=== PATIENT | male | born 1975 | race Caucasian/White ===

== ENCOUNTER → 2020-08-23 17:10 | Outpatient (BNVA) | payer BC, SELFPAY | PROVIDERS: Visit Provider Nurse Practitioner | DX: J02.9 Acute pharyngitis, unspecified (principal); J35.3 Hypertrophy of tonsils with hypertrophy of adenoids | CPT/HCPCS: 86308; 87071; 87880 ==

== ENCOUNTER → 2021-12-18 16:33 | Outpatient (BNVA) | payer BC, SELFPAY | PROVIDERS: Visit Provider Nurse Practitioner Family | DX: Z20.822 Contact with and (suspected) exposure to COVID-19 (principal) | CPT/HCPCS: 87635 ==

== ENCOUNTER → 2022-02-25 07:15 | Outpatient (BNVA) | payer OTHER, SELFPAY | PROVIDERS: PCP Family Medicine; Visit Provider Family Medicine | DX: D50.9 Iron deficiency anemia, unspecified (principal); R68.82 Decreased libido; J30.2 Other seasonal allergic rhinitis; Z12.5 Encounter for screening for malignant neoplasm of prostate | CPT/HCPCS: 80053; 80061; 82728; 83550; 84153; 84403; 85025 ==

== ENCOUNTER 2022-05-24 11:44 | Outpatient (CLI) | payer OTHER, SELFPAY ==
--- NOTE | 2022-05-24 12:00 | CT_ITS ---
WS: [id number] CT PARANASAL SINUSES HISTORY: Sinus infections TECHNIQUE: Contiguous 2.5 mm axial images obtained through the sinuses. Images are reconstructed in s agittal and coronal planes. All CT scans at [facility] use at least one of these dose optimiz ation techniques: automated exposure control; mA and/or kV adjustment per patient size (includes targ eted exams where dose is matched to clinical indication); or iterative reconstruction. DLP: 358.34 mGy.cm COMPARISON: None available. Frontal sinuses: Mild diffuse mucoperiosteal thickening extending into the frontal ethmoid recesses. Sphenoid sinus: Mild mucoperiosteal thickening. No air-fluid level. Ethmoid sinuses: Mild bilateral ethmoid air cell disease, greatest in the posterior air cells. There is also increased soft tissue extends to the frontal ethmoid recesses. Maxillary sinus: Very mild mucoperiosteal thickening, greatest on the RIGHT. Small mucous retention c yst RIGHT maxillary sinus. No air-fluid levels. Ostiomeatal unit: Mild soft tissue obstruction of the LEFT ostiomeatal unit. There is increased soft tissue at the RIGHT ostiomeatal unit but no obstruction at this time. Septum is near midline. Cribriform plate is in normal position. Orbits and globes are normal. CT/CT sinus wo con* [id number] IMPRESSION: 1. Mild diffuse mucoperiosteal thickening throughout the sinus cavities with a small RIGHT maxillary sinus mucous retention cyst. 2. No air-fluid levels. 3. Mild soft tissue obstruction of the LEFT ostiomeatal unit.
== END 2022-05-24 11:45 | disposition home or self-care (01) ==
PROVIDERS: PCP Family Medicine; Visit Provider Otolaryngology
DX: J32.9 Chronic sinusitis, unspecified (principal)
CPT/HCPCS: 70486

== ENCOUNTER → 2022-08-23 08:51 | Outpatient (BNVA) | payer OTHER, SELFPAY | PROVIDERS: PCP Family Medicine; Visit Provider Family Medicine | DX: R79.89 Other specified abnormal findings of blood chemistry (principal); G25.81 Restless legs syndrome; F17.219 Nicotine dependence, cigarettes, with unspecified nicotine-induced disorders | CPT/HCPCS: 84403; 85025 ==

== ENCOUNTER → 2023-01-23 09:25 | Outpatient (BNVA) | payer OTHER, SELFPAY | PROVIDERS: PCP Family Medicine; Visit Provider Family Medicine | DX: Z13.6 Encounter for screening for cardiovascular disorders (principal); R79.89 Other specified abnormal findings of blood chemistry; G25.81 Restless legs syndrome | CPT/HCPCS: 80053; 80061; 84403; 85025 ==

== ENCOUNTER → 2023-07-24 08:51 | Outpatient (BNVA) | payer OTHER, SELFPAY | PROVIDERS: PCP Family Medicine; Visit Provider Family Medicine | DX: R79.89 Other specified abnormal findings of blood chemistry (principal) | CPT/HCPCS: 84403; 85025 ==

== ENCOUNTER → 2023-07-31 08:26 | Outpatient (BNVA) | payer OTHER, SELFPAY | PROVIDERS: PCP Family Medicine; Visit Provider Family Medicine | DX: R79.89 Other specified abnormal findings of blood chemistry | CPT/HCPCS: 84403 ==

== ENCOUNTER 2023-09-22 17:00 | Outpatient (CLI) | payer OTHER, SELFPAY | END 2023-09-22 17:01 | disposition home or self-care (01) | LOC: SLEEP 09-23 10:09 | PROVIDERS: PCP Family Medicine; Visit Provider Family Medicine | DX: G47.33 Obstructive sleep apnea (adult) (pediatric) (principal) | CPT/HCPCS: 84403; G0399 ==

== ENCOUNTER → 2024-01-16 08:24 | Outpatient (BNVA) | payer BC, SELFPAY | PROVIDERS: PCP Family Medicine; Visit Provider Family Medicine | DX: R79.89 Other specified abnormal findings of blood chemistry (principal) | CPT/HCPCS: 84403; 85025 ==

== ENCOUNTER 2024-10-29 07:08 | Outpatient (CLI) | payer OTHER, SELFPAY ==
--- NOTE | 2024-10-29 07:12 | MR_ITS ---
WS: [id number] MRI LEFT ELBOW WITHOUT CONTRAST. COMPARISON: None Multiplanar, multisequence imaging is performed without contrast. Subtle marrow edema in the proximal radius. There is a short segment low signal associated with the m arrow edema which may indicate healing fracture. There is no displacement. There is also small amount of soft tissue edema at this site particularly between the radius and ulna. This may be from trabecu lar injury or subacute fracture. Brachialis and biceps tendon are appropriate. No tears or retraction. No significant joint effusion. The radial and ulnar collateral ligaments, common extensor tendon and the common flexor tendons appea r appropriate. There is no edema or tear is identified. No joint effusion or loose body. No osteochon dral lesions. MR/MR elbow LT wo con* [id number] IMPRESSION: 1. Subtle marrow edema in the proximal radial diaphysis. Small amount of assoc iated soft tissue edema. No displaced fracture. Suspect there is probably a hea ling incomplete fracture present. 2. No tendon or ligament tears identified.
== END 2024-10-29 07:09 | disposition home or self-care (01) ==
LOC: RAD 07:09
PROVIDERS: Visit Provider Preventive Medicine Preventive Medicine/Occupational Environmental Medicine
DX: S46.212A Strain of muscle, fascia and tendon of other parts of biceps, left arm, initial encounter (principal); X58.XXXA Exposure to other specified factors, initial encounter
CPT/HCPCS: 73221

== ENCOUNTER 2024-12-20 13:45 | Emergency (ER) | payer BC, SELFPAY ==
[2024-12-20 13:50] VITALS: BP 127/75; PULSE 91; RESP 20; TEMP 38.6; O2SAT 97; BMI 32.5
--- NOTE | 2024-12-20 13:57 | ECG_ITS ---
[facility] Test Date: 2024-12-20 Pat Name: Wilfrid Sales Department: Room: Gender: Male Clerk: : 1975 Requested By: Juan Naik Order Number: [id number] Reading MD: IESHA CALVERT Measurements Intervals [place] Rate: 91 P: 75 WA: 152 QRS: 61 QRSD: 75 T: 48 QT: 325 QTc: 401 Interpretive Statements SINUS RHYTHM No previous ECG available for comparison Electronically Signed On 12-20-2024 23:11:40 RN FACULTY by IESHA CALVERT [email or web address]
--- NOTE | 2024-12-20 14:02 | XRR_ITS ---
PROCEDURE INFORMATION: Exam: XR Chest Exam date and time: 12/20/2024 2:06 PM Age: 49 years old Clinical indication: Fever TECHNIQUE: Imaging protocol: Radiologic exam of the chest. Views: 1 view. COMPARISON: No relevant prior studies available. FINDINGS: Lungs: Unremarkable. No consolidation. Pleural spaces: Unremarkable. No pleural effusion. No pneumothorax. Heart/Mediastinum: Unremarkable. No cardiomegaly. Bones/joints: Unremarkable. XR/XR chest 1V portable [id number] IMPRESSION: No acute findings.
--- NOTE | 2024-12-20 14:23 | ED_ITS ---
HPI - Fever 2 General: Chief Complaint: Fever Stated Complaint: sent from clinic, AMS, flu like symp Time Seen by Provider: 12/20/24 14:11 History of Present Illness: 49-year-old male presents to the emergen cy room with flulike symptoms. Complaining of weakness generalized flulike symptoms coughing congested began yesterday. He was seen in primary care doctor they did antigen testing which was negative. Is complaining of myalgias and headache no diarrhea. Associated symptoms: Deny abdominal pain, chills, chest pain or dysuria Related Data Home Medications Medication Instructions Recorded Confirmed ropinirole 1 mg tablet 1 mg PO DAILY PRN rls 12/20/24 12/20/24 Previous Rx's Medication Instructions Recorded syringe with needle, safety 3 mL #100 ea 09/18/23 21 gauge x 1 (Monoject Safety Syringes) Auto titrating CPAP set to 6-16 #1 ea 09/26/23 with mask and supplies albuterol sulfate 90 mcg/actuation 2 inh inhalation Q4H PRN shortness 12/20/24 aerosol inhaler of breath or wheezing #18 grams Allergies Allergy/AdvReac Type Severity Reaction Status Date / Time No Known Allergies Allergy Verified 12/20/24 13:09 Review of Systems 2 Const: Denies: fever(s) or chills Card: Denies: chest pain Resp: Denies: dyspnea GI: Denies: abdominal pain : Denies: dysuria, urinary frequency or urinary urgency Musc: Denies: neck pain or back pain Skin/Breast: Denies: rash PFSH ED 2 PFSH: Medical History Syncope Chronic sinusitis with recurrent bronchitis Acute bronchitis No pertinent past medical history Surgical History No pertinent past surgical history Social History Smoking and tobacco/nicotine status: current every day tobacco/nicotine user cigarettes Packs smoked per day: 1 Alcohol intake: current Alcohol intake frequency: few times a week Alcohol type: beer Substance/Drug Use: never Physical Exam 2 Const: GENERAL APPEARANCE: cooperative ORIENTATION/CONSCIOUSNESS: Yes awake, Yes oriented to person, Yes oriented to place and Yes oriented to time HENMT: COMMON NORMALS: normocephalic, atraumatic and hearing grossly normal bilaterally HEAD & SCALP: normocephalic and atraumatic Resp: EFFORT & INSPECTION: Yes tachypneic AUSCULTATION: rhonchi Cardio: COMMON NORMALS: regular rate, regular rhythm and No murmurs present (Cardio) RATE: regular rate RHYTHM: regular rhythm GI: COMMON NORMALS: Soft to palpation and No hepatosplenomegaly present A USCULTATION: Yes normoactive bowel sounds PALPATION: Yes Soft to palpation, No Tenderness to palpation present (GI), No Guarding due to palpation present (GI) and Yes No hepatosplenomegaly present Extremity: COMMON NORMALS: normal to inspection, capillary refill normal, no clubbing, cyanosis or edema, no calf tenderness and no pedal edema Neuro: SENSORIUM/ORIENTATION: Yes oriented to person, Yes oriented to place and Yes oriented to time Skin: COMMON NORMALS: no rashes or lesions noted GENERAL SKIN EXAM: no rashes or lesions noted Course 2 Vital Signs: Vital signs: Vital Signs Temperature 101.4 F H 12/20/24 15:32 Pulse Rate 95 12/20/24 18:45 Respiratory Rate 20 H 12/20/24 13:50 Blood Pressure 119/57 12/20/24 18:45 Pulse Oximetry 93 12/20/24 18:45 Oxygen Delivery Me thod Room Air 12/20/24 18:00 MDM - Fever Medical Decision Making Patient has typical prodrome of virus. His white count is normal. He is complaining of chest and abdominal pain after initial workup CTA chest was added because he was slightly tachypneic and complaining of shortness of breath. He is also complaining of abdominal pain so include his abdomen CT. CTA chest with follow-through and abdomen pelvis was negative for any acute pathology his urine is normal. Will discharge patient home supportive cares and follow-up as needed. Medical Records I reviewed the patient's medical records. Lab Data I reviewed the patient's lab results. 12/20/24 14:33 12/20/24 14:33 Radiology Impressions Chest X-Ray 12/20/24 14:02 IMPRESSION: No acute findings. Chest/Abdomen/Pelvis CT 12/20/24 15:35 IMPRESSION: 1. No evidence for pulmonary embolism. 2. No acute cardiopulmonary process. 3. Nonspecific mediastinal and right hilar lymphadenopathy, which could be reactive in nature. Followup imaging recommended to insure stability/resolution however. 4. Incidental/nonacute findings are listed in the report. IMPRESSION: 1. Diffuse, mild bladder wall thickening. In the correct clinical setting, this may suggest cystitis. Recommend correlation with laboratory findings. Alternatively, this may be secondary to chronic outlet obstruction. 2. Incidental/nonacute findings are listed in the report. Laboratory Results WBC 9.41 10^3/uL (3.29-11.43) 12/20/24 14:33 RBC 4.85 10^6/uL (3.85-5.65) 12/20/24 14:33 Hgb 15.00 g/dL (11.27-16.99) 12/20/24 14:33 Hct 45.3 % (37-53) 12/20/24 14:33 MCV 93.4 fl (82-101) 12/20/24 14:33 MCH 30.9 pg (27-33) 12/20/24 14:33 MCHC 33.1 g/dL (30-55) 12/20/24 14:33 RDW 13.7 % (12.1-15.1) 12/20/24 14:33 Plt Count 199 10^3/cmm (157-399) 12/20/24 14:33 MPV 10.4 fL (7.4-10.4) 12/20/24 14:33 Neut % (Auto) 83.7 % 12/20/24 14:33 Lymph % (Auto) 7.9 % 12/20/24 14:33 [place] % (Auto) 7.4 % 12/20/24 14:33 Eos % (Auto) 0.3 % 12/20/24 14:33 Baso % (Auto) 0.3 % 12/20/24 14:33 Neut # (Auto) 7.87 10^3/uL (1.8-7.7) H 12/20/24 14:33 Lymph # (Auto) 0.7 10^3/uL (0.8-4.8) L 12/20/24 14:33 [place] # (Auto) 0.7 10^3/uL (0.2-0.9) 12/20/24 14:33 Eos # (Auto) 0.0 10^3/uL (0.0-0.8) 12/20/24 14:33 Baso # (Auto) 0.0 10^3/uL (0.0-0.1) 12/20/24 14:33 Nucleated RBC % (auto) 0 % 12/20/24 14:33 Nucleated RBCs # 0.0 /100WBC 12/20/24 14:33 Sodium 135 mmol/L (136-145) L 12/20/24 14:33 Potassium 4.0 mmol/L (3.5-5.1) 12/20/24 14:33 Chloride 97 mmol/L (98-107) L 12/20/24 14:33 Carbon Dioxide 27 mmol/L (22-29) 12/20/24 14:33 Anion Gap 15.0 (5-19) 12/20/24 14:33 BUN 14 mg/dL (6-20) 12/20/24 14:33 Creatinine 1.1 mg/dL (0.7-1.2) 12/20/24 14:33 GFR Calculation 70.9 mL/min (90-130) L 12/20/24 14:33 Glucose 101 mg/dL (65-115) 12/20/24 14:33 Calculated Osmolality 281 mOsm/kg (285-295) L 12/20/24 14:33 Lactic Acid 1.0 mmol/L (0.5-2.2) 12/20/24 14:33 Calcium 8.7 mg/dL (8.5-10.5) 12/20/24 14:33 Total Bilirubin 0.5 mg/dL (0.15-1.2) 12/20/24 14:33 AST 15 U/L (0-40) 12/20/24 14:33 ALT 16 U/L (0-41) 12/20/24 14:33 Alkaline Phosphatase 65 U/L (40-130) 12/20/24 14:33 Total Protein 6.6 g/dL (6.6-8.7) 12/20/24 14:33 Albumin 4.1 g/dL (3.5-5.2) 12/20/24 14:33 Globulin 2.5 g/dL (1.3-4.6) 12/20/24 14:33 Lipase 21 U/L (13-60) 12/20/24 14:33 Urine Color Yellow (Yellow) 12/20/24 18:10 Urine Appearance Clear (CLEAR) 12/20/24 18:10 Urine pH 6.0 (5-7) 12/20/24 18:10 Ur Specific [place] 1.090 (1.005-1.030) H 12/20/24 18:10 Urine Protein Trace (Negative) A 12/20/24 18:10 Urine Glucose (UA) Negative (Normal) 12/20/24 18:10 Urine Ketones Negative (Negative) 12/20/24 18:10 Urine Blood Negative (Negative) 12/20/24 18:10 Urine Nitrate Negative (Negative) 12/20/24 18:10 Urine Bilirubin Negative (Negative) 12/20/24 18:10 Urine Urobilinogen 1.0 mg/dL (Negative) 12/20/24 18:10 Ur Leukocyte Esterase Negative (Negative) 12/20/24 18:10 Urine RBC 0-2 /hpf (0-2) 12/20/24 18:10 Urine WBC 0-5 /hpf (0-5) 12/20/24 18:10 Ur Squamous Epith Cells 0-5 /hpf (0-5) 12/20/24 18:10 Amorphous Sediment Not Reportable 12/20/24 18:10 Urine Bacteria None seen /hpf (NONE) 12/20/24 18:10 Hyaline Casts 0-4 /lpf H 12/20/24 18:10 Coronavirus (PCR) Negative (Negative) 12/20/24 14:42 Influenza A (PCR) Negative (Negative) 12/20/24 14:42 Influenza Type B (PCR) Negative (Negative) 12/20/24 14:42 RSV (PCR) Negative (Negative) 12/20/24 14:42 All radiology interpretation(s) finalized by discharge Discharge Plan Discharge Patient Disposition: Home Clinical Impression: Viral URI with cough Condition: Stable Prescriptions: New albuterol sulfate 90 mcg/actuation HFA aerosol inhaler 2 inh INHALATION Q4H PRN (Reason: shortness of breath or wheezing) Qty: 18 0RF No Action (DME) Monoject Safety Syringes 3 mL 21 gauge x 1 syringe See Rx Instructions .Route Qty: 100 0RF Rx Instructions: Use with testosterone injection q 2 weeks (DME) Auto titrating CPAP set to 6-16 with mask and supplies See Rx Instructions .Route .MEDSUPPLY Qty: 1 0RF Rx Instructions: As directed ropinirole 1 mg tablet 1 mg PO DAILY PRN (Reason: rls) Discharge Orders: Discharge ED (Routine); Ordered 12/20/24 Ordered By: Juan Menchaca Discharge Diet: Usual diet Discharge Activity: Increase activity as tolerated Patient Instructions: Viral Syndrome (ED), Opioid Safety, Pain Management Activity Restrictions/Additional Instructions: Thank you for choosing [facility] for your healthcare needs today. It is very important that you follow up as instructed or that you return to the Emergency Department should you have concerns or if your condition changes or worsens in any way. You were seen in the emergency room for complaints of shortness of breath cough and congestion. Your white count was normal chest x-ray CTA of the chest as well as CT of the chest and abdomen was also normal. Your chemistry panel did not show significant abnormality. Recommend Tylenol and ibuprofen as needed for symptoms. You can use other [id number] cough cold medications as needed. Also use albuterol as needed for cough and congestion. If not improving follow- up with your primary care doctor. 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
[2024-12-20] MEDS: acetaminophen 500 mg Tablet 1000 MG PO (14:40)
[2024-12-20 14:49] LABS: Basophils % 0.3 %; Eosinophils % 0.3 %; Hematocrit 45.3 % (37-53); Lymphocytes # 0.7 10^3/uL (0.8-4.8); Lymphocytes % 7.9 %; Mean Corpuscular HGB Conc 33.1 g/dL (30-55); Mean Corpuscular Hemoglobin 30.9 pg (27-33); Mean Corpuscular Volume 93.4 fl (82-101); Mean Platelet Volume 10.4 fL (7.4-10.4); Monocytes # 0.7 10^3/uL (0.2-0.9); Monocytes % 7.4 %; Neutrophils # 7.87 10^3/uL (1.8-7.7); Neutrophils % 83.7 %; Nucleated Red Blood Cells % 0 %; Platelet Count 199 10^3/cmm (157-399); Red Blood Count 4.85 10^6/uL (3.85-5.65); Red Cell Distribution Width 13.7 % (12.1-15.1); White Blood Count 9.41 10^3/uL (3.29-11.43)
[2024-12-20 14:55] LABS: Alanine Aminotransferase 16 U/L (0-41); Albumin Level 4.1 g/dL (3.5-5.2); Alkaline Phosphatase 65 U/L (40-130); Aspartate Amino Transferase 15 U/L (0-40); Blood Urea Nitrogen 14 mg/dL (6-20); Calcium 8.7 mg/dL (8.5-10.5); Carbon Dioxide 27 mmol/L (22-29); Chloride 97 mmol/L (98-107); Creatinine Clr Calc Pharmacy 93.5636; Globulin 2.5 g/dL (1.3-4.6); Glomerular Filtration Rate 70.9 mL/min (90-130); Glucose 101 mg/dL (65-115); Lipase 21 U/L (13-60); Osmolality Calculated 281 mOsm/kg (285-295); Sodium 135 mmol/L (136-145); Total Bilirubin 0.5 mg/dL (0.15-1.2); Total Protein 6.6 g/dL (6.6-8.7)
[2024-12-20 15:26] LABS: Covid PCR NEGATIVE (Negative); Influenza A NEGATIVE (Negative); Influenza B NEGATIVE (Negative); Respiratory Syncytial Virus Ce NEGATIVE (Negative)
[2024-12-20] MEDS: sodium chloride 0.9% 1,000 ML 999 ML IV (15:28)
[2024-12-20 15:32] VITALS: TEMP 38.6
--- NOTE | 2024-12-20 15:35 | CTR_ITS ---
PROCEDURE INFORMATION: Exam: CTA Chest With Contrast Exam date and time: 12/20/2024 5:02 PM Age: 49 years old Clinical indication: Abdominal pain; Generalized; Chest pressure; Additional info: Shortness of breath cough abdominal pain TECHNIQUE: Imaging protocol: Computed tomographic angiography of the chest with contrast. Exam focused on the arteries. 3D rendering (Not supervised by radiologist): MIP and/or 3D reconstructed images were created by the technologist. Radiation optimization: All CT scans at this facility use at least one of these dose optimization techniques: automated exposure control; mA and/or kV adjustment per patient size (includes targeted exams where dose is matched to clinical indication); or iterative reconstruction. Contrast material: OMNIPAQUE 350; Contrast volume: 100 ml; Contrast route: INTRAVENOUS (IV); COMPARISON: CR XR chest 1V portable [id number] 12/20/2024 2:06 PM RADIATION DOSE METRICS: Total DLP (mGy-cm): 1529.18 FINDINGS: Pulmonary arteries: No filling defects in the pulmonary arteries to suggest pulmonary embolism. Aorta: No evidence for aortic aneurysm or aortic dissection. Trachea: Tracheobronchial structures are patent. Lungs: Lungs are clear bilaterally. No pulmonary parenchymal nodules or masses. Pleural spaces: No pneumothorax. No pleural effusion. Heart: Stable mild enlargement of the heart. Coronary arteries: Atherosclerotic calcification in the coronary arteries. Esophagus: The esophagus is unremarkable. Mediastinal space: No mediastinal hematoma. No pneumomediastinum. Lymph nodes: Multiple enlarged lymph nodes in the mediastinum and right hilum. The largest measures 1.8 cm in short axis (series 4, image 25). Bones/joints: Mild degenerative changes in the visualized spine. Soft tissues: No acute abnormality in the extrathoracic soft tissues. PROCEDURE INFORMATION: Exam: CT Abdomen And Pelvis With Contrast Exam date and time: 12/20/2024 5:02 PM Age: 49 years old Clinical indication: Abdominal pain; Generalized; Chest pressure; Additional info: Shortness of breath cough abdominal pain TECHNIQUE: Imaging protocol: Computed tomography of the abdomen and pelvis with contrast. Sagittal and coronal reformatted images were also reviewed. Radiation optimization: All CT scans at this facility use at least one of these dose optimization techniques: automated exposure control; mA and/or kV adjustment per patient size (includes targeted exams where dose is matched to clinical indication); or iterative reconstruction. Contrast material: OMNIPAQUE 350; Contrast volume: 100 ml; Contrast route: INTRAVENOUS (IV); COMPARISON: CR XR chest 1V portable [id number] 12/20/2024 2:06 PM RADIATION DOSE METRICS: Total DLP (mGy-cm): 1529.18 FINDINGS: Liver: The liver is unremarkable. Gallbladder and biliary ducts: The gallbladder is unremarkable. No biliary ductal dilatation. Pancreas: The pancreas is unremarkable. No pancreatic ductal dilatation. Spleen: The spleen is unremarkable. Adrenal glands: The right and left adrenal glands are unremarkable. Kidneys and ureters: The right and left kidneys are unremarkable. The right and left ureters are unremarkable. Stomach and bowel: No acute abnormality in the stomach, small bowel, or colon. Appendix: The appendix is visualized and is unremarkable. No findings to suggest acute appendicitis. Intraperitoneal space: No free intraperitoneal air. No ascites. No loculated fluid collections to suggest an abscess. Vasculature: Minimal atherosclerotic changes in the visualized arteries. No evidence for aortic aneurysm or aortic dissection. Hepatic veins, portal veins, splenic vein, and SMV are patent. Lymph nodes: No lymphadenopathy. Urinary bladder: Diffuse, mild bladder wall thickening. Reproductive: Unremarkable as visualized. Bones/joints: Mild degenerative changes in the visualized spine. Soft tissues: No acute abnormality in the extra-abdominal soft tissues. CT/CT angio chest w abd pel w con IMPRESSION: 1. No evidence for pulmonary embolism. 2. No acute cardiopulmonary process. 3. Nonspecific mediastinal and right hilar lymphadenopathy, which could be reactive in nature. Followup imaging recommended to insure stability/resolution however. 4. Incidental/nonacute findings are listed in the report. IMPRESSION: 1. Diffuse, mild bladder wall thickening. In the correct clinical setting, this may suggest cystitis. Recommend correlation with laboratory findings. Alternatively, this may be secondary to chronic outlet obstruction. 2. Incidental/nonacute findings are listed in the report.
[2024-12-20 16:00] VITALS: BP 113/49; PULSE 90; O2SAT 92
[2024-12-20] MEDS: iohexol 350 mg/mL 500 mL Btl (per mL) IV (17:04)
[2024-12-20 18:00] VITALS: BP 123/78; PULSE 84; O2SAT 92
[2024-12-20 18:28] LABS: Bilirubin Urine Negative (Negative); Blood Urine Negative (Negative); Glucose Urine UA Negative (Normal); Ketones Urine Negative (Negative); Leukocyte Esterase Urine Negative (Negative); Nitrate Urine Negative (Negative); Protein Urine Trace (Negative); Urine Appearance Clear (CLEAR); Urine Color Yellow (Yellow)
[2024-12-20 18:33] LABS: Add Urine Microscopic? YES; Bacteria Urine None Seen /hpf; Hyaline Casts Urine 0-4 /lpf; RBC Urine 0-2 /hpf (0-2); Squamous Epithelial Cell Urine 0-5 /hpf (0-5); WBC Urine 0-5 /hpf (0-5)
[2024-12-20 18:34] LABS: Add Urine Culture? No
[2024-12-20 18:45] VITALS: BP 119/57; PULSE 95; O2SAT 93
[2024-12-22 01:07] LABS: Bacillus cereus group Not Detected (NOT DETECT); Bacillus subtillis group Not Detected (NOT DETECT); Corynebacterium Not Detected (NOT DETECT); Cutibacterium acnes (P.acnes) Not Detected (NOT DETECT); Enterococcus Not Detected (NOT DETECT); Enterococcus faecalis Not Detected (NOT DETECT); Enterococcus faecium Not Detected (NOT DETECT); Lactobacillus species Not Detected (NOT DETECT); Listeria Not Detected (NOT DETECT); Listeria monocytogenes Not Detected (NOT DETECT); Micrococcus Not Detected (NOT DETECT); Pan Candida Not Detected (NOT DETECT); Pan Gram-Negative Not Detected (NOT DETECT); Staphylococcus epidermidis Detected (NOT DETECT); Staphylococcus lugdunensis Not Detected (NOT DETECT); Staphylococcus species Detected (NOT DETECT); Streptococcus agalactiae Not Detected (NOT DETECT); Streptococcus anginosus group Not Detected (NOT DETECT); Streptococcus pneumoniae Not Detected (NOT DETECT); Streptococcus pyogenes Not Detected (NOT DETECT); Streptococcus species Not Detected (NOT DETECT); mecA Not Detected (NOT DETECT); mecC Not Detected (NOT DETECT)
== END 2024-12-20 18:46 | disposition home or self-care (01) ==
PROVIDERS: Emergency Medicine; Emergency Provider Family Medicine
DX: J06.9 Acute upper respiratory infection, unspecified (principal); Z11.52 Encounter for screening for COVID-19; F17.210 Nicotine dependence, cigarettes, uncomplicated
CPT/HCPCS: 36415; 71045; 71275; 74177; 80053; 81001; 83605; 83690; 85025; 87040; 87077; 87150; 87186; 87205; 87400; 87426; 87637; 87880; 93005; 99285; J7030

== ENCOUNTER → 2025-04-15 09:46 | Outpatient (BNVA) | payer BC, SELFPAY | DX: R07.9 Chest pain, unspecified (principal) | CPT/HCPCS: 71046 ==

== ENCOUNTER 2025-11-03 07:51 | Outpatient (CLI) | payer OTHER, SELFPAY ==
--- NOTE | 2025-11-03 08:12 | FL_ITS ---
WS: [id number] Exam: FL barium swallow [id number] Date/Time of Exam: 11/03/2025 8:25 AM Reason For Exam: DYSPHAGIA Fluoroscopy time: 1min [id number] minutes # of spot films: The esophagus is smooth in contour. No evidence of esophageal stricture or mass. Normal motility was noted. During the oropharyngeal phase of swallowing there was significant premature spillage of liquid into the piriform sinuses and the vallecula. No hiatal hernia or gastroesophageal reflux was noted. FL/FL barium swallow [id number] IMPRESSION: 1. There was no indication of esophageal stricture, mass or motility disorder. 2. Oral pharyngeal phase of swallowing shows significant spillage of liquid bar ium into the piriform sinuses in the vallecula preceding swallowing. A modified barium swallow test might be considered for further work-up if thoug ht to be clinically warranted.
== END 2025-11-03 07:52 | disposition home or self-care (01) ==
PROVIDERS: PCP Family Medicine; Visit Provider Otolaryngology
DX: R13.14 Dysphagia, pharyngoesophageal phase (principal)
CPT/HCPCS: 74220

== ENCOUNTER 2025-11-08 08:35 | Outpatient (CLI) | payer OTHER, SELFPAY ==
--- NOTE | 2025-11-08 | FL_ITS ---
FL barium swallow modifd [id number] REASON FOR EXAM: Pharyngoesoph. dysphagia FLUOROSCOPY TIME: 1min [id number] # OF SPOT FILMS: None TECHNIQUE: The procedure was supervised by the speech therapy department. Patient was examined in the sitting upright lateral projection. Swallowing of varying consistencies of barium was monitored fluoroscopically and video recorded. FINDINGS: Premature spillage of contrast into the valleculae and piriform sinuses prior to initiation of swallow. No aspiration or laryngeal vestibule penetration by liquid contrast. No impedance to the passage of the barium tablet through the thoracic esophagus and into the stomach. IMPRESSION: Premature spillage into the hypopharynx. No aspiration. A detailed report of the swallowing will be rendered by the speech therapy department. No esophageal obstruction. MTDD
== END 2025-11-08 08:36 | disposition home or self-care (01) ==
LOC: RAD 08:41
PROVIDERS: PCP Family Medicine; Visit Provider Otolaryngology
DX: R13.14 Dysphagia, pharyngoesophageal phase (principal)
CPT/HCPCS: 74230; 92611